=== PATIENT | male | born 1955 | race Caucasian/White ===

== ENCOUNTER → 2016-11-15 | Outpatient (CLI) | payer OTHER ==
[2016-02-23 15:22] VITALS: BP 127/65
[~2016-11-15] MED LIST: LOVA40TA2; METF500T4 PO; RIVA10TA PO
--- NOTE | 2016-11-15 16:17 | KCIC ---
PROCEDURE Two-view chest HISTORY Acute bronchitis, cough for 2-3 weeks COMPARISON None FINDINGS Two views of the chest are submitted. Some mild linear opacity of the medial right lung base is likely due to mild atelectasis. There is no dependent pleural fluid, pneumothorax, lobar infiltrate. Heart size is within normal limits. IMPRESSION Mild linear opacity right lung base is more likely due to mild atelectasis than infiltrate. Electronically signed by: Burt Foster MD (Nov 15, 2016 16:16:35)
== END | disposition home or self-care (01) ==
LOC: KCIC 15:46
PROVIDERS: ATTEND Physician Assistant Medical
DX: J20.9 Acute bronchitis, unspecified (principal); R05 Cough; J98.11 Atelectasis; R91.8 Other nonspecific abnormal finding of lung field
CPT/HCPCS: 71020

== ENCOUNTER → 2016-12-08 | Outpatient (CLI) | payer OTHER ==
[2016-02-23 15:22] VITALS: BP 127/65
--- NOTE | 2016-12-08 10:19 | KCIC ---
PROCEDURE Two-view chest HISTORY Persistent cough for 3 weeks, acute bronchitis COMPARISON November 15, 2016 FINDINGS Two PA and single lateral views of the chest are submitted. There is no new infiltrate, pleural effusion, pneumothorax. Heart size is stable, within normal limits. IMPRESSION 1. There is no new lobar consolidation. Electronically signed by: Burt Foster MD (Dec 08, 2016 10:18:16)
== END | disposition home or self-care (01) ==
LOC: KCIC 09:48
PROVIDERS: ATTEND Physician Assistant Medical
DX: J20.9 Acute bronchitis, unspecified (principal)
CPT/HCPCS: 71020

== ENCOUNTER → 2019-04-11 | Outpatient (CLI) | payer OTHER ==
[2016-02-23 15:22] VITALS: BP 127/65
[~2019-04-11] MED LIST changes: +METF500T16 PO; -METF500T4 PO
--- NOTE | 2019-04-11 16:31 | KCIC ---
CHEST PA LATERAL, RIBS RIGHT History: Right sided anterior chest wall pain for 2 or 3 weeks. Pain with deep inspiration. 2 view chest compared with 12/08/2016. Cardiomediastinal silhouette is stable. No evidence of pneumothorax, pleural effusion or consolidating infiltrate. Bones appear grossly intact. Mild degenerative changes of the spine. Right RIBS No evidence of displaced right rib fracture. Electronically signed by: Fernie Yo MD (04/11/2019 4:28 PM) [id number]
== END | disposition home or self-care (01) ==
LOC: KCIC 13:53
PROVIDERS: ATTEND Physician Assistant Medical
DX: R07.89 Other chest pain (principal); M47.819 Spondylosis without myelopathy or radiculopathy, site unspecified
CPT/HCPCS: 71046; 71100